=== PATIENT | male | born 1985 | race Caucasian/White ===

== ENCOUNTER 2018-09-19 16:18 | Emergency (ER) | payer MEDICARE, SELFPAY ==
[2018-09-19 16:19] VITALS: BP 148/81; PULSE 89; RESP 16; TEMP 36.5; O2SAT 98; BMI 22.8
--- NOTE | 2018-09-19 16:36 | ED.VIS.GEN ---
History of Present Illness Chief Complaint: Upper Extremity Injury Informant: Patient Onset: Days - 3 days ago Context: Sudden Onset Timing: Continuous Quality: Pain anterior to posterior axillary line over ribs 4, 5, 6 and 7 Location: Right side Current Severity: Mild Maximum Severity: Severe Worsened by: Per patient nothing Relieved by: Per patient nothing Associated Symptoms: No associated symptoms Narrative: Patient is a 32-year-old male presents with pain right lateral chest wall anterior to posterior axillary line over ribs 5, 6 and 7. He reports increased pain with deep breathing. He denies runny nose, congestion, postnasal drainage. No sore throat. Denies fever or chills. He denies direct trauma. This occurred after pruning trees with his arms abductor and extended. He denies paresthesia, anesthesia or motor weakness. He has no other complaints. Prior similar symptoms: No Recent Illness/Hospitalization: No - Past Medical History (1) No significant past medical history Status: Acute Past Medical History - Allergies and Home Meds Allergies/Adverse Reactions: Allergies No Known Allergies Allergy (Verified 09/19/18 16:21) Primary Care Physician: NOT,DEFINED [Primary Care Provider] - Prior records reviewed: No Surgical History: no surgical history Lives: Spouse/ Significant Other Smoking Status: Current every day smoker Alcohol: None Review of Systems General: Denies: Chills, Fever, Malaise, Sweats, Weight loss ENT: Denies: Bilateral ear pain, Rhinorrhea, Sore throat Cardiovascular: Reports: Chest pain. Denies: Palpitations, Heart racing Respiratory: Reports: Cough - Chronic cough, which she attributes to smoking and nonproductive. Denies: Dyspnea, Sputum, Dyspnea on exertion Gastrointestinal: Denies: Abdominal pain, Nausea, Vomiting, Diarrhea, Melena, Hematochezia Genitourinary: Denies: Dysuria, Hematuria, Frequency Musculoskeletal: Denies: Myalgias, Arthralgias, Neck pain, Back pain, Swelling, Extremity Pain Skin: Denies: Rash, Wounds Neurological: Denies: Headache, Weakness, Parasthesia, Numbness Hematologic: Denies: Easy bruising, Easy bleeding Physical Exam Vital Signs/Narrative: Vital Signs Temp Pulse Resp BP Pulse Ox 09/19/18 16:19 97.7 F L 89 16 148/81 H 98 Inital Vital Signs reviewed: Yes General: Well nourished, Well developed, No Acute Distress Head: Normocephalic, Atraumatic Eyes: Perrl, EOMI. Negative for: Pale conjunctiva, Scleral icterus Neck: Supple, Nontender, No lymphadenopathy, No JVD Cardiovascular: Regular rate, Regular rhythm, No murmurs, Normal S1, Normal S2 Respiratory: No distress, CTA bilaterally, Chest nontender Extremities: Nontender, No edema, - - Having patient abductor and adductor against resistance causes increased pain over the right chest wall. Neurological: Alert, Oriented x3, Cranial nerves II-XII grossly intact, Normal Strength, Normal Sensation Psychological: Normal affect, Normal Mood Diagnostic/Tx/Re-eval - Medical Decision Making Patient's history and physical exam is consistent with chest wall pain from pruning. He was prescribed Naprosyn and discharged with appropriate home-going instructions. Since there is no history of trauma doubt fractured rib. Clinically he does not have pneumonia. ED Disposition - Plan for ED Patient: Disposition: Home or Assisted Living Diagnosis: Right chest wall strain Instructions: ED Strain Chest Wall Prescriptions: Naproxen [Naprosyn] 500 mg PO BID #14 tab Referrals: NOT,DEFINED [Primary Care Provider] - Maggie Godoy [NON-STAFF] - 1 Week if not improving
[2018-09-19] MEDS: Naproxen 250 MG Tablet 500 MG PO (16:47)
== END 2018-09-19 17:10 | disposition home or self-care (01) ==
LOC: ED 17:02
PROVIDERS: Emergency Provider Emergency Medicine
DX: S29.011A Strain of muscle and tendon of front wall of thorax, initial encounter (principal); R05 Cough; X58.XXXA Exposure to other specified factors, initial encounter; Y93.9 Activity, unspecified; Y92.9 Unspecified place or not applicable; F17.200 Nicotine dependence, unspecified, uncomplicated
CPT/HCPCS: 99283

== ENCOUNTER 2022-09-24 13:24 | Emergency (ER) | payer MEDICARE, MEDICAID, SELFPAY ==
[2022-09-24 13:25] VITALS: BP 156/116; PULSE 107; RESP 18; TEMP 36.4; O2SAT 100; BMI 22.5
--- NOTE | 2022-09-24 14:36 | CT_ITS ---
STUDY: CT BRAIN WITHOUT CONTRAST REASON FOR EXAM: Male, 36 years old. Headache RADIATION DOSAGE (If Supplied By Facility): CTDIvol = ( 44.99 ) mGy, DLP = ( 812.98 ) mGycm TECHNIQUE: Transaxial CT imaging of the brain was performed without administration of intravenous contrast material. Individualized dose optimization techniques were used for this CT. COMPARISON: No relevant priors. FINDINGS: Normal soft tissue structures. Normal calvarium. Normal size ventricles and extra-axial spaces for the patient''s age. Normal white matter tracts of the cerebral hemispheres. Normal basal ganglia and thalami. Normal brainstem. Normal cerebellum. There is no intracranial hemorrhage. There are no findings of an acute ischemic infarction. Normal visualized paranasal sinuses. CT/Brain/Head without Contrast IMPRESSION: Normal unenhanced CT scan of the brain. Electronically Signed: Merlene Horvath MD at 15:15 EDT ,
--- NOTE | 2022-09-24 14:36 | CT_ITS ---
STUDY: CT CERVICAL SPINE WITHOUT CONTRAST REASON FOR EXAM: Male, 36 years old. Pain RADIATION DOSAGE (If Supplied By Facility): CTDIvol = ( 14.58 ) mGy, DLP = ( 323.24 ) mGycm TECHNIQUE: High resolution transaxial imaging was performed without contrast material. Sagittal and coronal images were reconstructed. Individualized dose optimization techniques were used for this CT. COMPARISON: None FINDINGS: Normal craniovertebral junction. Normal anterior atlantoaxial articulation. Normal odontoid process. There is straightening of the normal cervical lordosis. Normal vertebral bodies and posterior osseous elements. C2-3: Normal endplates. Normal disc height and morphology. Normal central canal and intervertebral neuroforamina. C3-4: Normal endplates. Normal disc height and morphology. Normal central canal and intervertebral neuroforamina. C4-5: There is visualized spondylosis. There is no visualized neural foramina narrowing or central stenosis. C5-6: There is visualized osteophyte formation extending anteriorly. There is minimal neural foramina narrowing no significant central stenosis. C6-7: There is disc space narrowing and broad disc osteophyte mild to moderate neural foramina narrowing mild central stenosis. C7-T1: Normal endplates. Normal disc height and morphology. Normal central canal and intervertebral neuroforamina. Normal visualized soft tissue structures. CT/Spine Cervical without Contras IMPRESSION: Degenerative change of the cervical spine. No significant C5-C6 C6-C7. No apparent acute loss of height or alignment. Electronically Signed: Merlene Horvath MD at 15:17 EDT Reading Location ID and State: [facility] / [place] Tel , Service support ,
--- NOTE | 2022-09-24 14:38 | EDS_ITS ---
HPI History of Present Illness Chief Complaint: Neuro S/Sx Narrative Narrative: Patient states for the past month he has been having pain in his neck as well as an occipital headache that feels like a migraine with occasional nausea especially when the pain is worse, and briefly blurry vision without any vision loss or diplopia, states moving his head makes the pain in his neck worse and radiate all the way down his spine to his buttocks. He states since yesterday he has been having intermittent numbness and tingling in both hands, both feet, sometimes it is just his hands or just his feet and sometimes it is all four. He denies any weakness. In addition to this since yesterday he has been having vertiginous symptoms, he has humming in his ears but no ringing, no earache, no recent injury to his head or neck or recent illness. He states the off-balance vertiginous feeling is constant since yesterday, and worse with any position changes especially of his head. He denies having any fevers or chills with any of this. No confusion. He does not have any known medical problems but states because of this pain he saw his doctor at [facility] in [place], had some neck x-rays that showed some degenerative changes, he was prescribed meloxicam and a muscle relaxer and he states they have not been helping. [facility] Medical History (Updated 09/24/22 @ 15:[address] Alan Gloria MD) Neck pain Medical History no medical history no medical history Home Medications orphenadrine citrate 100 mg tablet,extended release 100 mg PO Q12H PRN muscle pain #20 tabs 09/24/22 [Rx Last Taken Unknown] Allergy/AdvReac Type Severity Reaction Status Date / Time No Known Allergies Allergy Verified 09/19/18 16:21 Social History (Updated 09/24/22 @ 14:[address] Alan Gloria MD) Smoking Status: Current every day smoker tobacco type: cigarettes substance use type: does not use ROS ROS ED Constitutional Constitutional ED: Denies chills or fever(s) Eyes Eyes: Reports blurry vision bilateral (Intermittent not currently); Denies diplopia ENT ENT ED: Denies ear pain, rhinorrhea or sore throat Cardiovascular Cardiovascular: Denies chest pain or palpitations Respiratory/Chest Respiratory/Chest: Denies cough or dyspnea Gastrointestinal Gastrointestinal: Reports nausea; Denies abdominal pain, diarrhea or vomiting Genitourinary Genitourinary ED: Denies dysuria or hematuria Musculoskeletal Musculoskeletal: Reports back pain and neck pain Integumentary Denies abscess or rash Neurologic Neurologic: Reports headache(s) and paresthesias RUE, RLE, LUE and LLE; Denies weakness Psychiatric Psychiatric: Denies anxiety or suicidal thoughts EXAM Physical Exam Const Vital Signs: 09/24/22 13:25 09/24/22 14:51 Temperature 97.6 F L Temperature Source Temporal Pulse Rate 107 H Respiratory Rate 18 Respiratory Effort Normal Non-Labored Blood Pressure 156/116 H Blood Pressure Mean 129 Pulse Ox 100 Oxygen Delivery Method Room Air Positive well nourished and well developed General Appearance ED: well developed and NAD HEENT Reports moist mucous membranes normocephalic and atraumatic Eyes PERRL and EOMs intact bilaterally Neck no lymphadenopathy Neck Narrative: Severe diffuse bilateral paraspinal tenderness normal on inspection no masses, induration, or swelling areas. has very limited range of motion due to pain. not meningismic. General: tenderness Chest Wall inspection of chest normal and palpation of chest normal Resp normal respiratory effort and clear to auscultation bilaterally Cardio regular rate, regular rhythm and no murmurs GI non-tender and non-distended Auscultation: normoactive bowel sounds Palpation: soft Back/Spine no CVA tenderness General Back: other FROM Extremity normal to inspection General Extremety ED: Negative for edema, pulses abnormal or tenderness General Extremity: Negative for edema or pulses abnormal Neuro oriented x3, CN's II-XII intact bilaterally and no sensory deficits noted Neuro Narrative: Normal DTRs x4. No clonus. Downgoing toes. Sensorium / Orientation: awake and alert Motor Exam: strength 5/5 throughout Psych Mood & Affect: anxious Skin no rashes or lesions noted and no wounds MDM MDM MDM Narrative Medical decision making narrative: Basic labs were obtained in addition to CT of the head and cervical spine given all symptoms and differential which is relatively wide, cannot rule out the possibility of degenerative disc abnormalities or ruptured disc since he does not meet any criteria for emergent MRI since he has no objective neurologic deficits. He does not have any symptoms of cauda equina syndrome, no bowel or bladder dysfunction or persistent numbness/weakness, just intermittent symptoms which are nonspecific and nonlateralizing. I reviewed the images of a CT head and cervical spine, and reports which I agree with, basically negative for any acute. There are some generalized arthritic changes which are probably related to his smoking more so than his age since he is relatively young at 36. Other than a hemoglobin of 18.7, his labs are normal. I discussed that with him. I treated him while we were waiting for these results with IV Toradol and Norflex, he is feeling much better on reevaluation moving his neck fully, he states it hurts to move side to side but he can do it without any difficulty, and he can move his chin down to his chest without any pain. I discussed and considered the possibility of meningitis as well as an lumbar puncture, I do not think he has to have it but I offered it. He declines at this time. Given all of this, I think musculoskeletal etiologies are higher on the differential. He states that the Norflex really helped a lot more than the Zanaflex he was taking some going to give him a prescription for that and advised that he follow-up with his doctor and he is comfortable with that plan. History & Record Review Additional record(s) reviewed:: No prior records Lab Data Attestation: I reviewed the patient's lab results. Labs: Laboratory Results - last 24 hr 09/24/22 09/24/22 14:41 14:41 WBC 7.7 RBC 6.10 Hgb 18.7 H* Hct 53.3 MCV 87.4 MCH 30.7 MCHC 35.1 RDW Std Deviation 37.8 RDW Coeff of Ayaka 11.9 Plt Count 255 MPV 9.9 Immature Gran % (Auto) 0.300 Neut % (Auto) 58.9 Lymph % (Auto) 31.4 Republic % (Auto) 6.0 Eos % (Auto) 2.7 Baso % (Auto) 0.7 Absolute Neuts (auto) 4.5 Absolute Lymphs (auto) 2.40 Nucleated RBC % 0 Diff Path Review May foll Sodium 137 Potassium 4.2 Chloride 102 Carbon Dioxide 28.0 Anion Gap 7 BUN 12 Creatinine 0.82 Estim Creat Clear Calc 116.27 Est GFR (MDRD) Af Amer 135 Est GFR (MDRD) Non-Af 112 BUN/Creatinine Ratio 14.7 Glucose 177 H Calcium 9.8 Radiography Diagnostic Testing: Clinical Impression(s) from Imaging Studies Brain CT 09/24/22 14:36 IMPRESSION: Normal unenhanced CT scan of the brain. Electronically Signed: Merlene Horvath MD at 15:15 EDT , Cervical Spine CT 09/24/22 14:36 IMPRESSION: Degenerative change of the cervical spine. No significant C5-C6 C6-C7. No apparent acute loss of height or alignment. Electronically Signed: Merlene Horvath MD at 15:17 EDT , Discharge Plan Triage Chief Complaint: Neuro S/Sx ED Provider: Alan Gloria Dx/Rx/DC Orders Clinical Impression: Musculoskeletal neck pain, Migraine headache, Paresthesias, Polycythemia Instructions: ED Neck Pain Prescriptions: New orphenadrine citrate 100 mg tablet extended release 100 mg PO Q12H PRN (Reason: muscle pain) Qty: 20 0RF Primary Care Provider: Care Physician,No Primary Referrals: Care Physician,No Primary [Primary Care Provider] - Doctor,Your [Non-Staff] - 1 Week if not improving Disposition Disposition: Home, Self Care
[2022-09-24] MEDS: Metoclopramide 10 MG/2 ML Vial IV (14:48)
[2022-09-24] MEDS: 0.9% Normal Saline 1,000 ML 999 ML IV (14:48)
[2022-09-24] MEDS: Ketorolac 30 MG/ML Syringe IV (14:48)
[2022-09-24] MEDS: Orphenadrine 60 MG/2 ML Ampul IV (14:48)
[2022-09-24 14:50] VITALS: BMI 22.5
[2022-09-24 14:53] LABS: Absolute Neutrophil Count 4.5 X10^3/uL (2.0-7.7); Basophil# 0.05 X10^3/uL; Basophil% 0.7 % (0-1); Eosinophil# 0.21 X10^3/uL; Eosinophils% 2.7 % (0-5); Hematocrit 53.3 % (40-54); Hemoglobin 18.7 g/dL (13.0-16.5); Lymphocyte % 31.4 % (19-41); Mean Corp Hgb Conc 35.1 g/dL (32-36); Mean Corpuscular Hgb 30.7 pg (27.0-32.0); Mean Corpuscular Volume 87.4 fL (80-94); Mean Platelet Vol. 9.9 fl (6.2-12.0); Monocyte# 0.46 X10^3/uL; NRBC Flagged by Analyzer 0 % (0-5); Neutrophil # 4.51 X10^3/uL (2.7-7.7); Neutrophil % 58.9 % (47-70); Platelet Count 255 K/mm3 (150-450); RBC Distribution Width CV 11.9 % (11.6-14.6); RBC Distribution Width SD 37.8 fl (35.1-43.9); White Blood Count 7.7 K/mm3 (4.4-11.0)
[2022-09-24 15:07] LABS: Anion Gap 7 (5-15); BUN 12 mg/dL (7-18); BUN/Creat Ratio 14.7 RATIO (10-20); Calcium,Total 9.8 mg/dL (8.5-10.1); Chloride 102 mmol/L (98-107); Creatinine, Serum 0.82 mg/dL (0.70-1.30); EST Glomerular Filtration Rate 112 mL/min (>60); Est Glom Filt Rate - Afr Amer 135 mL/min (>60); Estimated Creatinine Clearance 116.27 ml/min; Glucose 177 mg/dL (74-106); Potassium 4.2 mmol/L (3.5-5.1); Sodium Level 137 mmol/L (136-145)
[2022-09-29 09:04] LABS: Pathologist Review Reviewed
== END 2022-09-24 15:57 | disposition home or self-care (01) ==
PROVIDERS: Emergency Provider Emergency Medicine; Visit Provider Emergency Medicine
DX: M54.2 Cervicalgia (principal); G43.909 Migraine, unspecified, not intractable, without status migrainosus; R20.2 Paresthesia of skin; F17.210 Nicotine dependence, cigarettes, uncomplicated; D75.1 Secondary polycythemia
CPT/HCPCS: 70450; 72125; 80048; 85025; 96361; 96374; 96375; 99284; J7030; A4216